=== PATIENT | male | born 1995 | race Caucasian/White ===

== ENCOUNTER 2016-06-11 18:48 | Emergency (ER) | payer BC, OTHER ==
[~2016-06-11] VITALS: Ht 195.6 cm; Wt 95.5 kg
[2016-06-11 19:24] VITALS: BP 132/67; PULSE 94; RESP 18; TEMP 97.9
--- NOTE | 2016-06-11 19:33 | PD ---
HPI Chief Complaint: Psychiatric Symptoms Time Seen by Provider: 19:31 Travel History International Travel<30 days: No Contact w/Intl Traveler<30days: No Traveled to known affect area: No History of Present Illness HPI 21-year-old male brought in under the Tao act. Patient reportedly had a knife pointing at his chest stating he wanted to kill himself. Patient is now denying this and is uncooperative. He denies any medical issues at this time. [facility] Social History Alcohol Use: Yes Tobacco Use: No Substance Use: No Allergies-Medications (Allergen,Severity, Reaction): Coded Allergies: Penicillin (Verified Allergy, Severe, Hives, 06/12/16) Reported Meds & Prescriptions Reported Meds & Active Scripts Active Reported Adderall (Amphetamine-Dextroamphetamine) 20 Mg Tab 20 Mg PO DAILY Avoid late evening doses. Space doses at least 4 to 6 hours if more than once/day dosing. Review of Systems ROS Limitations: Uncooperative Except as stated in HPI: all other systems reviewed are Neg General / Constitutional: No: Fever Eyes: No: Visual changes HENT: No: Headaches Cardiovascular: No: Chest Pain or Discomfort Respiratory: No: Shortness of Breath Gastrointestinal: No: Abdominal Pain Genitourinary: No: Dysuria Musculoskeletal: No: Pain Skin: No Rash Neurologic: No: Weakness Psychiatric: No: Depression Endocrine: No: Polydipsia Hematologic/Lymphatic: No: Easy Bruising Physical Exam Exam Limitations: Uncooperative Narrative GENERAL: Patient appears in no acute distress. He is agitated in the ambulance cam. Patient wants to leave. SKIN: Warm and dry. No obvious signs of trauma. Normal color. Normal turgor. HEAD: Atraumatic. Normocephalic. EYES: Pupils equal and round. No scleral icterus. No injection or drainage. ENT: No nasal bleeding or discharge. Mucous membranes pink and moist. Pharynx is clear. NECK: Trachea midline. Neck is supple. CARDIOVASCULAR: Regular rate and rhythm. RESPIRATORY: No accessory muscle use. Clear to auscultation. Breath sounds equal bilaterally. MUSCULOSKELETAL: Extremities without clubbing, cyanosis, or edema. No obvious deformities. NEUROLOGICAL: Awake and alert. No obvious cranial nerve deficits. Motor grossly within normal limits. Five out of 5 muscle strength in the arms and legs. Normal speech. PSYCHIATRIC: Appropriate mood and affect; insight and judgment normal. Data Data Last Documented VS Vital Signs Date Time Temp Pulse Resp B/P Pulse Ox O2 Delivery O2 Flow Rate FiO2 06/12/16 06:40 97.1 92 18 104/52 96 Room Air Orders Complete Blood Count With Diff (06/11/16 19:12) Comprehensive Metabolic Panel (06/11/16 19:12) Psych Screen (06/11/16 19:12) Drug Screen, Random Urine (06/11/16 19:12) Alcohol (Ethanol) (06/11/16 19:12) Ondansetron Odt (Zofran Odt) (06/12/16 01:15) Diet Regular Basic (06/12/16 Breakfast) Labs Laboratory Tests Test 06/11/16 06/11/16 19:46 21:00 White Blood Count 7.4 TH/MM3 Red Blood Count 4.80 MIL/MM3 Hemoglobin 14.5 GM/DL Hematocrit 40.6 % Mean Corpuscular Volume 84.6 FL Mean Corpuscular Hemoglobin 30.1 PG Mean Corpuscular Hemoglobin 35.6 % Concent Red Cell Distribution Width 12.9 % Platelet Count 228 TH/MM3 Mean Platelet Volume 7.8 FL Neutrophils (%) (Auto) 68.5 % Lymphocytes (%) (Auto) 23.6 % Monocytes (%) (Auto) 5.0 % Eosinophils (%) (Auto) 2.4 % Basophils (%) (Auto) 0.5 % Neutrophils # (Auto) 5.1 TH/MM3 Lymphocytes # (Auto) 1.7 TH/MM3 Monocytes # (Auto) 0.4 TH/MM3 Eosinophils # (Auto) 0.2 TH/MM3 Basophils # (Auto) 0.0 TH/MM3 CBC Comment DIFF FINAL Differential Comment Sodium Level 142 MEQ/L Potassium Level 3.9 MEQ/L Chloride Level 106 MEQ/L Carbon Dioxide Level 30.1 MEQ/L Anion Gap 6 MEQ/L Blood Urea Nitrogen 12 MG/DL Creatinine 0.93 MG/DL Estimat Glomerular Filtration 102 ML/MIN Rate Random Glucose 93 MG/DL Calcium Level 9.2 MG/DL Total Bilirubin 0.6 MG/DL Aspartate Amino Transf 27 U/L (AST/SGOT) Alanine Aminotransferase 41 U/L (ALT/SGPT) Alkaline Phosphatase 64 U/L Total Protein 8.0 GM/DL Albumin 4.4 GM/DL Ethyl Alcohol Level 192 MG/DL Urine Opiates Screen NEG Urine Barbiturates Screen NEG Urine Amphetamines Screen NEG Urine Benzodiazepines Screen NEG Urine Cocaine Screen NEG Urine Cannabinoids Screen POS MDM Medical Decision Making Medical Screen Exam Complete: Yes Emergency Medical Condition: Yes Differential Diagnosis Tao act. Question suicidal ideation. Agitation. Narrative Course Patient is medically stable at time of exam. Psychiatric labs are ordered per protocol including CBC, CMP, urine drug screen , and EtOH level. Psychiatric screening is ordered. Condition: Stable Librado Be Jun 11, 2016 19:33
[2016-06-11 19:59] LABS: AUTOMATED NEUTROPHIL # 5.1 TH/MM3 (1.8-7.7); BASOPHIL % 0.5 % (0.0-2.0); EOSINOPHIL # 0.2 TH/MM3 (0-0.4); EOSINOPHIL % 2.4 % (0.0-4.0); HEMATOCRIT 40.6 % (39.0-51.0); HEMO FLAGS DIFF FINAL; LYMPH % 23.6 % (9.0-44.0); LYMPHOCYTE # 1.7 TH/MM3 (1.0-4.8); MEAN CELL VOLUME 84.6 FL (80.0-100.0); MEAN CORPUSCULAR HEMOGLOBIN 30.1 PG (27.0-34.0); MEAN CORPUSCULAR HGB CONC 35.6 % (32.0-36.0); NEUT % 68.5 % (16.0-70.0); PLATELET COUNT 228 TH/MM3 (150-450); RED CELL DISTRIBUTION WIDTH 12.9 % (11.6-17.2); WHITE BLOOD COUNT 7.4 TH/MM3 (4.0-11.0)
[2016-06-11 20:18] LABS: ANION GAP 6 MEQ/L (5-15)
[2016-06-11 20:21] LABS: ALKALINE PHOSPHATASE 64 U/L (45-117); ALT (GPT) 41 U/L (12-78); AST (GOT) 27 U/L (15-37); BICARBONATE 30.1 MEQ/L (21.0-32.0); BLOOD UREA NITROGEN 12 MG/DL (7-18); CHLORIDE 106 MEQ/L (98-107); GLOMERULAR FILTRATION RATE 102 ML/MIN (>89); POTASSIUM 3.9 MEQ/L (3.5-5.1); SODIUM (NA) 142 MEQ/L (136-145); TOTAL BILIRUBIN ADULT 0.6 MG/DL (0.2-1.0)
[2016-06-11 21:50] LABS: AMPHETAMINE, URINE NEG (NEG); BARBITURATES, URINE NEG (NEG); COCAINE, URINE NEG (NEG)
[2016-06-11 21:53] VITALS: BP 118/57; PULSE 83; RESP 16; O2SAT 98
[2016-06-12] MEDS ORDERED: ADDE20 PO (01:06)
[2016-06-12] MEDS ORDERED: ONDANSETRON ODT 4 MG TAB PO ONE (01:15)
[2016-06-12 02:31] VITALS: BP 119/53; PULSE 88; RESP 16; O2SAT 95
[2016-06-12 06:40] VITALS: BP 104/52; PULSE 92; RESP 18; TEMP 97.1; O2SAT 96
--- NOTE | 2016-06-12 10:27 | PD ---
History of Present Illness Chief Complaint: Psychiatric Symptoms Time Seen by Provider: 10:00 Travel History International Travel<30 Days: No Contact w/Intl Traveler<30days: No Known affected area: No Legal Status Legal Status: Tao Act Tao Act Signed By: Riya Chu History of Present Illness: Patient is apparently on spring and became greatly intoxicated last night. He has minimal or limited recall of the things he may have said or done last night. He does recall being accosted by law enforcement and states he was accused of having a knife on his person. He denies this at the present time and states he told police that could search his belongings. At this point he is also denying any suicidal or homicidal ideation, plan or intent. He exhibits no psychotic symptoms. His cognition is completely intact. He is calm , pleasant and cooperative. He verbally contracts for safety. He admits to having consumed too much alcohol yesterday. At this point he is feeling contrite and remorseful because of his actions yesterday. PFSH Past Medical History Medical History: Denies Significant Hx Psychiatric History Psychiatric History Hx Psychiatric Treatment: DENIES History of Inpatient Treatment: No Social History Hx Alcohol Use: Yes Hx Tobacco Use: No Hx Substance Use: No Substance Use Type: Alcohol Hx of Substance Use Treatment: No Allergies-Medications (Allergen,Severity, Reaction): Coded Allergies: Penicillin (Verified Allergy, Severe, Hives, 06/12/16) Reported Meds & Prescriptions Reported Meds & Active Scripts Active Reported Adderall (Amphetamine-Dextroamphetamine) 20 Mg Tab 20 Mg PO DAILY Avoid late evening doses. Space doses at least 4 to 6 hours if more than once/day dosing. Review of Systems ROS Limitations: Clinical Condition Except as stated in HPI: all other systems reviewed are Neg Exam Exam Limitations: Clinical Condition Alert: Yes [place]: Person, Place, Date, Situation Mood: Calm Affect: Euthymic Speech: Clear, Logical Eye Contact: Normal Memory Intact: Immediate, Recent, Remote Delusions: No Insight/Judgement Insight and judgment are certainly adequate at this time. MDM Medical Decision Making Medical Record Reviewed: Yes Assessment/Plan Patient's Tao act is being lifted at this time. Is being lifted and he is being sent home. Although he likely abused alcohol last night to the point of stating or behaving in a erratic fashion, at this point he is sober and appropriate. He does not meet Tao act criteria and he does not meet psychiatric admission criteria. Orders Complete Blood Count With Diff (06/11/16 19:12) Comprehensive Metabolic Panel (06/11/16 19:12) Psych Screen (06/11/16 19:12) Drug Screen, Random Urine (06/11/16 19:12) Alcohol (Ethanol) (06/11/16 19:12) Ondansetron Odt (Zofran Odt) (06/12/16 01:15) Diet Regular Basic (06/12/16 Breakfast) Results Vital Signs Date Time Temp Pulse Resp B/P Pulse Ox O2 Delivery O2 Flow Rate FiO2 06/12/16 06:40 97.1 92 18 104/52 96 Room Air 06/12/16 02:31 88 16 119/53 95 Room Air 06/11/16 21:53 83 16 118/57 98 Room Air 06/11/16 19:24 97.9 94 18 132/67 Laboratory Tests Test 06/11/16 06/11/16 19:46 21:00 White Blood Count 7.4 Red Blood Count 4.80 Hemoglobin 14.5 Hematocrit 40.6 Mean Corpuscular Volume 84.6 Mean Corpuscular Hemoglobin 30.1 Mean Corpuscular Hemoglobin 35.6 Concent Red Cell Distribution Width 12.9 Platelet Count 228 Mean Platelet Volume 7.8 Neutrophils (%) (Auto) 68.5 Lymphocytes (%) (Auto) 23.6 Monocytes (%) (Auto) 5.0 Eosinophils (%) (Auto) 2.4 Basophils (%) (Auto) 0.5 Neutrophils # (Auto) 5.1 Lymphocytes # (Auto) 1.7 Monocytes # (Auto) 0.4 Eosinophils # (Auto) 0.2 Basophils # (Auto) 0.0 CBC Comment DIFF FINAL Differential Comment Sodium Level 142 Potassium Level 3.9 Chloride Level 106 Carbon Dioxide Level 30.1 Anion Gap 6 Blood Urea Nitrogen 12 Creatinine 0.93 Estimat Glomerular Filtration 102 Rate Random Glucose 93 Calcium Level 9.2 Total Bilirubin 0.6 Aspartate Amino Transf 27 (AST/SGOT) Alanine Aminotransferase 41 (ALT/SGPT) Alkaline Phosphatase 64 Total Protein 8.0 Albumin 4.4 Ethyl Alcohol Level 192 Urine Opiates Screen NEG Urine Barbiturates Screen NEG Urine Amphetamines Screen NEG Urine Benzodiazepines Screen NEG Urine Cocaine Screen NEG Urine Cannabinoids Screen POS Diagnosis Primary Impression: Alcohol abuse Departure Forms: Tests/Procedures Patient Instructions: General Instructions, Alcohol Intoxication (ED), Abuse of Alcohol (ED) Disposition: 01 DISCHARGE HOME Condition: Stable Ramsey Syed MD Jun 12, 2016 10:27
== END 2016-06-12 11:30 | disposition home or self-care (01) ==
LOC: NEDAMB 18:48 → NEPJ 06-12 11:30
DX: F10.10 Alcohol abuse, uncomplicated (principal)
CPT/HCPCS: 80053; 80307; 85025; 99283